=== PATIENT | female | born 1970 | race Two or more races ===

== ENCOUNTER → 2020-03-23 | Emergency (ER) | payer MEDICAID, OTHER, SELFPAY ==
[~2020-03-23] VITALS: Ht 165.1 cm; Wt 62.8 kg
[~2020-03-23] MED LIST: FAMOTIDINE 20 MG/2 ML IV ONE; FAMOTIDINE 20 MG/2 ML ONE; JARDIANCE; KETOROLAC 30 MG/1 ML IVPush ONE; KETOROLAC 30 MG/1 ML ONE; METFORMIN; ONDANSETRON 2MG/ML, 2ML IVPush ONE; ONDANSETRON 2MG/ML, 2ML ONE; SIMVASTATIN; SODIUM CHLORIDE FLUSH 10ML SYR IVF ONE; SULF1TAB24 PO; SUMATRIPTAN; TYLENOL
--- NOTE | 2020-03-23 16:20 | NUR ---
BIB [facility] FROM HOME WITH CP, BARDALES SINCE YESTERDAY AND N/V/D, SOB TODAY. PT DENIES COUGH OR SORE THROAT. TOOK TYLENOL AT HOME FOR THE PAIN PRIOR TO EMS ARRIVING.
--- NOTE | 2020-03-23 16:45 | NUR ---
DISCUSSION WITH JOSE ALEJANDRO KHANNA REGARDING PT'S PAIN AND BP. AWAITING FURTHER ORDERS.
[2020-03-23 17:05] LABS: BASOPHILS # (AUTO) 0.02 x10^3/uL (0-0.1); BASOPHILS % (AUTO) 0 % (0-1); EOSINOPHILS # (AUTO) 0.04 x10^3/uL (0-0.4); EOSINOPHILS % (AUTO) 1 % (1-7); LYMPHOCYTES # (AUTO) 2.37 x10^3/uL (1-3.4); LYMPHOCYTES % (AUTO) 37 % (22-44); MD NO; MEAN CORPUSCULAR HEMOGLOBIN 28.5 pg (27.0-34.8); MEAN CORPUSCULAR HGB CONC 33.3 g/dL (32.4-35.8); MEAN CORPUSCULAR VOLUME 85.5 fL (80-100); MEAN PLATELET VOLUME 8.1 fL (7.4-10.4); MONOCYTES # (AUTO) 0.38 x10^3/uL (0.2-0.8); MONOCYTES % (AUTO) 6 % (2-9); NEUTROPHILS # (AUTO) 3.58 x10^3/uL (1.8-6.8); NEUTROPHILS % (AUTO) 56 % (42-75); PLATELET COUNT 312 x10^3/uL (130-400); RED BLOOD COUNT 5.12 x10^6/uL (3.82-5.3); RED CELL DISTRIBUTION WIDTH 11.9 % (9.6-15.2)
[2020-03-23 17:11] LABS: ALANINE AMINOTRANSFERASE 25 U/L (12-78); ALBUMIN 4.1 g/dL (3.4-5.0); ANION GAP 8 mmol/L (5-15); CALCIUM 9.2 mg/dL (8.5-10.1); CHLORIDE 105 mmol/L (98-107); CREATININE 0.58 mg/dL (0.55-1.02)
[2020-03-23 17:15] LABS: ALKALINE PHOSPHATASE 91 U/L (45-117); BILIRUBIN,TOTAL 0.5 mg/dL (0.2-1.0); TOTAL PROTEIN 8.7 g/dL (6.4-8.2)
--- NOTE | 2020-03-23 17:33 | NUR ---
PT AMBULATES WELL INDEPENDENTLY TO BATHROOM AND BACK TO BED. UA SENT. ER PA AWARE OF BP.
[2020-03-23 17:51] LABS: MICROSCOPIC AUTO
[2020-03-23 18:18] VITALS: BP 145/76
--- NOTE | 2020-03-23 18:18 | NUR ---
PT USING CELL PHONE IN BED, NAD NOTED AT THIS TIME. PO FLUIDS PROVIDED FOR PO CHALLENGE. SIDE RAILS UP, CALL LIGHT IN REACH.
--- NOTE | 2020-03-23 18:53 | NUR ---
REPORT TO JURGEN COPELAND.
== END ==
LOC: ED 18:59
DX: K85.90 Acute pancreatitis without necrosis or infection, unspecified (principal); R10.13 Epigastric pain; R11.2 Nausea with vomiting, unspecified; R19.7 Diarrhea, unspecified; I48.91 Unspecified atrial fibrillation; R94.31 Abnormal electrocardiogram [ECG] [EKG]; R51 Headache; R30.9 Painful micturition, unspecified; E11.9 Type 2 diabetes mellitus without complications
CPT/HCPCS: 36415; 71045; 76700; 80053; 81001; 83690; 84703; 85025; 93005; 96374; 96375; 99285; J1885; J2405; J3490

== ENCOUNTER 2020-09-23 11:41 | Emergency (ER) | payer MEDICAID ==
[~2020-09-23] VITALS: Ht 154.9 cm; Wt 62.6 kg
[~2020-09-23 11:41] MED LIST changes: -FAMOTIDINE 20 MG/2 ML IV ONE; -FAMOTIDINE 20 MG/2 ML ONE; -KETOROLAC 30 MG/1 ML IVPush ONE; -KETOROLAC 30 MG/1 ML ONE; -ONDANSETRON 2MG/ML, 2ML IVPush ONE; -ONDANSETRON 2MG/ML, 2ML ONE; -SODIUM CHLORIDE FLUSH 10ML SYR IVF ONE
[2020-09-23 12:33] LABS: BASOPHILS % (AUTO) 0 % (0-1); EOSINOPHILS % (AUTO) 0 % (1-7); LYMPHOCYTES % (AUTO) 32 % (22-44); MEAN CORPUSCULAR HEMOGLOBIN 28.3 pg (27.0-34.8); MEAN CORPUSCULAR HGB CONC 33.8 g/dL (32.4-35.8); MEAN PLATELET VOLUME 8.5 fL (7.4-10.4); MONOCYTES % (AUTO) 5 % (2-9); NEUTROPHILS % (AUTO) 63 % (42-75); PLATELET COUNT 213 x10^3/uL (130-400); RED BLOOD COUNT 4.85 x10^6/uL (3.82-5.3); RED CELL DISTRIBUTION WIDTH 12.4 % (9.6-15.2)
[2020-09-23 12:35] LABS: MD NO
[2020-09-23 12:57] LABS: ALBUMIN 3.4 g/dL (3.4-5.0); ANION GAP 8 mmol/L (5-15); CALCIUM 8.6 mg/dL (8.5-10.1); CHLORIDE 100 mmol/L (98-107); CREATININE 0.69 mg/dL (0.55-1.02)
--- NOTE | 2020-09-23 13:26 | NUR ---
PATIENT ROOMED FROM [facility]
--- NOTE | 2020-09-23 13:36 | NUR ---
PATIENT STATES SORE THROAT AND BODY ACHES SINCE LAST MONDAY.
[2020-09-23] MEDS ORDERED: KETOROLAC 30 MG/1 ML IVPush ONE (14:00)
[2020-09-23] MEDS ORDERED: SODIUM CHLORIDE 0.9% 1,000ML IVBOLUS ONE (14:00)
[2020-09-23] MEDS ORDERED: KETOROLAC 30 MG/1 ML ONE (14:01)
--- NOTE | 2020-09-23 14:10 | NUR ---
PATIENT PLACED ON TWO LITERS NASAL CANNULA FOR SAT'S 89%
--- NOTE | 2020-09-23 15:26 | NUR ---
PATIENT HELPED TO BEDSIDE COMMODE TO VOID.
--- NOTE | 2020-09-23 15:28 | NUR ---
PATIENT TAKEN OFF OXYGEN TO GO TO BEDSIDE COMMODE, OXYGEN DROPPED TO 84%
[2020-09-23] MEDS ORDERED: CEFDINIR 300 MG CAPSULE ONE (15:44)
[2020-09-23 15:50] VITALS: BP 115/54
--- NOTE | 2020-09-23 15:51 | NUR ---
PATIENT DISCHARGED AND INFORMATION ALL REVIEWED. FEELS IMPROVED.
[2020-09-23] MEDS ORDERED: CEFDINIR 300 MG CAPSULE PO ONE (16:00)
== END 2020-09-23 15:59 | disposition home or self-care (01) ==
LOC: ED 15:53
DX: U07.1 COVID-19 (principal); R50.9 Fever, unspecified; M79.10 Myalgia, unspecified site; E11.65 Type 2 diabetes mellitus with hyperglycemia; J18.9 Pneumonia, unspecified organism; R05 Cough; R51.9 Headache, unspecified
CPT/HCPCS: 36415; 71045; 80048; 82040; 85025; 87635; 96361; 96374; 99284; J1885; J7030